=== PATIENT | male | born 1990 | race African-American/Black ===

== ENCOUNTER 2018-10-13 14:50 | Emergency (ER) | payer MEDICAID ==
[~2018-10-13] VITALS: Ht 182.9 cm; Wt 82.0 kg
[2018-10-13] MEDS ORDERED: AZITHROMYCIN 500 MG TABLET PO ONE (16:15)
[2018-10-13] MEDS ORDERED: CEFTRIAXONE SODIUM 250 MG/VIAL IM ONE (16:15)
[2018-10-13 17:06] LABS: CLARITY URINE CLEAR (CLEAR); COLOR URINE YELLOW (YELLOW); KETONES URINE TRACE (NEGATIVE); LEUKOCYTE ESTERASE URINE 1+ (NEGATIVE); NITRITE URINE NEGATIVE (NEGATIVE); OCCULT BLOOD URINE NEGATIVE (NEGATIVE); PROTEIN URINE NEGATIVE (NEGATIVE); SPECIFIC GRAVITY URINE 1.031 (1.005-1.030); UROBILINOGEN URINE 0.2 E.U./dL (0.2-1.0)
[2018-10-13 18:27] VITALS: BP 135/71
== END 2018-10-13 18:27 | disposition home or self-care (01) ==
LOC: ER 14:50
DX: Z20.2 Contact with and (suspected) exposure to infections with a predominantly sexual mode of transmission (principal); R30.0 Dysuria
CPT/HCPCS: 81003; 96372; 99283; J0696